=== PATIENT | female | born 1935 | race Two or more races ===

== ENCOUNTER 2016-09-02 12:41 | Emergency (ER) | payer MEDICARE, OTHER ==
[~2016-09-02] VITALS: Wt 69.0 kg
[~2016-09-02 12:41] MED LIST: AMLO-145 PO; CALC-600 PO; DICL50TA11 PO
[2016-09-02] MEDS ORDERED: IBUPROFEN 200 MG TAB PO ONE (14:00)
[2016-09-02] MEDS ORDERED: traMADol 50 MG TAB PO ONE (14:00)
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
[2016-09-02] MEDS ORDERED: TRAM50TA2 PO (15:14)
[2016-09-02] MEDS ORDERED: ACET500C5 PO (15:14)
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
== END 2016-09-02 15:33 | disposition home or self-care (01) ==
LOC: FTE 12:41
DX: S49.92XA Unspecified injury of left shoulder and upper arm, initial encounter (principal); I10 Essential (primary) hypertension; V79.9XXA Bus occupant (driver) (passenger) injured in unspecified traffic accident, initial encounter
CPT/HCPCS: 73060

== ENCOUNTER 2016-09-20 10:23 | Emergency (ER) | payer MEDICARE, OTHER ==
[~2016-09-20] VITALS: Ht 152.4 cm; Wt 56.0 kg
[~2016-09-20 10:23] MED LIST changes: +ACET500C5 PO; +TRAM50TA2 PO
[2016-09-20 10:27] VITALS: Ht 152.4 cm; Wt 56.0 kg
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
[2016-09-20] MEDS ORDERED: ACET500C5 PO (12:53)
[2016-09-20] MEDS ORDERED: TRAM50TA2 PO (12:53)
== END 2016-09-20 13:04 | disposition home or self-care (01) ==
LOC: FTE 10:23
DX: M25.512 Pain in left shoulder (principal); I10 Essential (primary) hypertension
CPT/HCPCS: 73060; 93005